=== PATIENT | female | born 2000 | race American Indian/Alaskan Native ===

== ENCOUNTER 2018-11-02 06:07 | Inpatient (IN) | payer MEDICAID ==
--- NOTE | 2018-11-02 08:15 | History and Physical Report ---
History of Present Illness Date of examination: 11/02/18 Chief complaint: SROM @ 0515 this morning History of present illness: EDC Confirmation: 11/09/2018 Past History : 1 Term Births: 0 Premature Births: 0 Living Children: 0 Para: 0 Mult. Births: 0 Prev : 0 Aborta: 0 Elect. Ab: 0 Spont. 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 of genital herpes: no Genetic History Congenital Heart Defect: Mom: no Dad: no Natasha Disease: Mom: no Dad: no Thalassemia Mom: no Dad: no Neural Tube Defect Mom: no Dad: no Down's Syndrome Mom: no Dad: no Carlos-Sachs Mom: no Dad: no Sickle Cell Disease/Trait Mom: no Dad: no Hemophilia Mom: no Dad: no Muscular Dystrophy Mom: no Dad: no Cystic Fibrosis Mom: no Dad: no Rapides Chorea Mom: no Dad: no Mental Retardation Mom: no Dad: no Fragile X Mom: no Dad: no Other Genetic/Chromosomal Disorder Mom: no Dad: no Child w/other defect Mom: no Dad: no Enviromental Exposures Xray Exposure: no Medication, drug, or alcohol use since LMP: yes Exposure to Cat Liter: no Hx of Parvovirus (Fifth Disease): no Active Medications (reviewed today): VITAMIN PLUS LOW IRON 27-1 MG ORAL TABLET ( VIT-FE FUMARATE-FA) 1 po q day as directed Current Allergies (reviewed today): No known allergies Past History Past Medical History: no pertinent history Past Surgical History: no surgical history Family/Genetic History: other Social history: single, lives with family. denies: smoking, alcohol abuse, prescription drug abuse, IV drug use - Obstetrical History Expected Date of Delivery: 11/09/18 Actual Gestation: 39 Week(s) 0 Day(s) : 1 Para: 0 Hx # Term Pregnancies: 0 Number of Pregnancies: 0 Spontaneous Abortions: 0 Induced : 0 Number of Living Children: 0 Medications and Allergies Allergies Allergy/AdvReac Type Severity Reaction Status Date / Time No Known Allergies Allergy Verified 11/02/18 08:06 Home Medications Medication Instructions Recorded Confirmed Last Taken Type Plus Iron Tablet 1 tab PO DAILY 11/02/18 11/02/18 1 Day Ago History ~11/01/18 Active Meds: Active Medications Ephedrine Sulfate (Ephedrine Sulfate) 10 mg IV Q2M PRN PRN Reason: Hypotension Fentanyl (Sublimaze) 100 mcg IV Q2H PRN PRN Reason: Labor Pain Oxytocin/Sodium Chloride (Pitocin/Ns 20 Unit/1000ml Drip) 20 units in 1,000 mls @ 125 mls/hr IV DIRECT HOLLY Oxytocin/Sodium Chloride (Pitocin/Ns 30 Unit/500ml) 30 units in 500 mls @ 4 mls/hr IV TITR HOLLY; Protocol Lactated Ringer's (Lactated Ringers) 1,000 mls @ 125 mls/hr IV DIRECT HOLLY Lidocaine (Xylocaine 2%) 20 ml INFILTRATI ONCE ONE Stop: 11/02/18 07:34 Mineral Oil (Mineral Oil) 30 ml PO QHS PRN PRN Reason: Constipation Terbutaline Sulfate (Brethine) 0.25 mg SUB-Q ONCE PRN PRN Reason: Hyperstimulation/Hypertonicity Review of Systems All systems: negative - Vital Signs Vital signs: Vital Signs Pulse BP 86 123/86 11/02/18 06:55 11/02/18 06:55 Temp Pulse Resp BP Pulse Ox 98.3 F 89 16 120/82 11/02/18 08:03 11/02/18 08:03 11/02/18 08:03 11/02/18 08:03 - Physical Exam Breasts: Positive: normal Cardiovascular: Regular rate Lungs: Positive: Clear to auscultation, Normal air movement Abdomen: Positive: normal appearance, soft Genitourinary (Female): Positive: normal external genitalia, normal perenium Vulva: both: normal Vagina: Positive: normal moisture (clear fluid) Uterus: Positive: normal size, normal contour Anus/Rectum: Positive: normal perianal skin Extremities: Positive: normal Deep Tendon Reflex Grade: Normal +2 - Obstetrical FHR: category 1 Uterine Contraction Monitor Mode: External Cervical Dilatation: 2 (posterior) Cervical Effacement Percentage: 70 station: -2 Uterine Contraction Frequency (min): 2-3 Uterine Contraction Duration: 60 Uterine Contraction Pattern: Regular Uterine Tone Measurement Phase: Contraction Uterine Contraction Intensity: Mild Results Result Diagrams: 11/02/18 08:00 All other labs normal. Assessment and Plan 17y/o @ 39 weeks admitted in early labor with SROM clear fluids. GBS negative. GC/CT results pending, will fax to hospital once received. complicated by late PNC @ 34 weeks. Pelvis feels adequate. Admission orders in EMR. Anticipate . - Patient Problems (1) 39 weeks gestation of Current Visit: Yes Status: Acute (2) SROM (spontaneous rupture of membranes) Current Visit: Yes Status: Acute Plan to address problem: limit SVE pitocin augmentation
[2018-11-02 08:19] LABS: Hematocrit 37.4 % (30.3-42.9); Hemoglobin 12.6 gm/dl (10.1-14.3); Mean Corpuscular HGB Conc 34 % (30-34); Mean Corpuscular Volume 86 fl (79-97); Platelet Count 265 K/mm3 (140-440); Red Blood Count 4.37 M/mm3 (3.65-5.03); Red Cell Distribution Width 13.5 % (13.2-15.2)
[2018-11-02] MEDS: LACTATED RINGERS 1,000 ML IV SCH ×2 (08:39→13:08)
[2018-11-02] MEDS ORDERED: BRETHINE SUB-Q PRN (09:00)
[2018-11-02] MEDS ORDERED: MINERAL OIL PO PRN (09:00)
[2018-11-02] MEDS ORDERED: XYLOCAINE 2% INFILTRATI NR (09:00)
[2018-11-02] MEDS ORDERED: PITOCin/NS 30 UNIT/500ML 30 UNITS/500 ML BAG IV SCH (09:00)
[2018-11-02] MEDS ORDERED: PITOCin/NS 20 UNIT/1000ML DRIP 20 UNITS/1,000 ML BAG IV SCH ×2 (09:00→16:30)
[2018-11-02] MEDS: SUBLIMAZE IV PRN ×2 (10:16→13:36)
--- NOTE | 2018-11-02 14:01 | Procedure Note ---
OB Delivery Note - Delivery Date of Delivery: 11/02/18 ( female) [employer] Machine Operator: CHRISTOPHER KO Estimated blood loss: 300cc - Vaginal Delivery presentation: vertex Delivery position: OA Intrapartum events: none Delivery induction: none Delivery augmentation: pitocin Delivery monitor: external FHT, internal uterine Route of delivery: Delivery placenta: spontaneous Delivery cord: 3 umbilical vessels Episiotomy: none Delivery laceration: 2nd degree Delivery repair: vicryl Anesthesia: local Delivery comments: female del over intact perineum, placed skin to skin on mother's abdomen. 3 vessel cord clamped and cut, cord blood collected. placenta del intact and complete. 2nd degree laceration repaired in the usual fashion under local. EBL 300, apgars 9/9, wt 7#6oz. baby and pt stable. - A at 1 minute: 9 at 5 minutes: 9 Gender: Female (7#6)
[2018-11-02] MEDS ORDERED: LANSINOH TP PRN (16:30)
[2018-11-02] MEDS ORDERED: PHENERGAN PO PRN (16:30)
[2018-11-02] MEDS ORDERED: ZOFRAN IV PRN (16:30)
[2018-11-02] MEDS ORDERED: TUCKS PAD TP PRN (16:30)
[2018-11-02] MEDS ORDERED: SODIUM CHLORIDE FLUSH SYRINGE 10 ML IV NR (16:30)
[2018-11-02] MEDS ORDERED: MILK OF MAGNESIA PO PRN (16:30)
[2018-11-02] MEDS ORDERED: BENADRYL PO PRN (17:00)
[2018-11-02] MEDS ORDERED: DERMOPLAST TP PRN (17:00)
[2018-11-02] MEDS ORDERED: TYLENOL PO PRN (17:00)
[2018-11-02] MEDS: IBUPROFEN PO SCH ×2 (17:30→23:52)
[2018-11-02 20:09] LABS: Amphetamine Screen,Urine PRESUMPTIVE NEGATIVE; Benzodiazepines Screen,Urine PRESUMPTIVE NEGATIVE; Cannabinoid Screen,Urine PRESUMPTIVE NEGATIVE; Cocaine Screen,Urine PRESUMPTIVE NEGATIVE; Methadone Screen,Urine PRESUMPTIVE NEGATIVE; Opiate Screen,Urine PRESUMPTIVE NEGATIVE
[2018-11-02] MEDS ORDERED: DULCOLAX PR PRN (22:00)
[2018-11-03 02:09] LABS: Hematocrit 31.6 % (30.3-42.9); Hemoglobin 10.4 gm/dl (10.1-14.3)
[2018-11-03] MEDS: IBUPROFEN PO SCH (05:48)
[2018-11-03] MEDS ORDERED: BOOSTRIX IM ONE ×2 (06:00→13:49)
--- NOTE | 2018-11-03 08:43 | Discharge Summary ---
Providers - Providers Date of Admission: 11/02/18 08:56 Date of discharge: 11/03/18 (pt desires d/c) Attending physician: KENTON MENJIVAR 11/02/18 18:18 Consult to Case Management [CONS] Routine Services Needed at Discharge: Chain Offbearer Notified:: [phone] Phone number called:: [phone] Additional Physician Instructions: thc use, during Primary care physician: KENTON MENJIVAR Hospitalization Reason for admission: active labor, IUP at term Delivery: Episiotomy: none Laceration: none Incision: normal Other procedures: none complications: none Discharge diagnosis: IUP at term delivered baby: female Hospital course: uncomplicated vaginal delivery Pt awake No c/o voiced VSS FF below umb Lochia small perineum intact H&H 01/10 stable Doing well s/p vag delivery P: d/c today with instructions RTO 4 weeks PP care DEPO @ d/c Condition at discharge: Good Disposition: DC-01 TO HOME OR SELFCARE - Discharge Diagnoses (1) (normal spontaneous vaginal delivery) Status: Acute Comment: RTO 4 weeks PP care Plan - Provider Discharge Summary Activity: routine, no sex for 6 weeks, no heavy lifting 4 weeks, no strenuous exercise Diet: routine Instructions: routine Additional instructions: [] Smoking cessation referral if applicable(refer to patient education folder for contact #) [] Refer to [facility] Booklet Call your doctor immediately for: * Fever > 100.5 * Heavy vaginal bleeding ( >1 pad per hour) * Severe persistent headache * Shortness of breath * Reddened, hot, painful area to leg or breast * Drainage or odor from incision. * Keep incision clean and dry at all times and follow doctor's instructions regarding bathing/showering - Follow up plan Follow up: KENTON MENJIVAR MD [Primary Care Provider] - 12/03/18 (Congratulations! Please call [phone] to schedule your appointment in 4 weeks. Call with any headache, blurred vision, chest pain. Take motrin/ibuprofen for cramping/pain. Call with any concerns.)
[2018-11-03] MEDS ORDERED: DEPO-PROVERA (CONTRACEPTION) IM ONE (09:00)
[2018-11-03 09:10] VITALS: BP 116/78
[2018-11-03] MEDS ORDERED: PRENATAL VITAMIN PO SCH (10:00)
== END 2018-11-03 15:40 | disposition home or self-care (01) | DRG 775 ==
LOC: TRG 06:07 → LD 06:35 → TRG 08:55 → LD 08:56 → OB 16:19
PROVIDERS: ADMIT Obstetrics & Gynecology; ATTEND Obstetrics & Gynecology
PROC: 10E0XZZ Delivery of Products of Conception, External Approach (ICD-10-PCS; principal; 2018-11-02)
PROC: 0KQM0ZZ Repair Perineum Muscle, Open Approach (ICD-10-PCS; 2018-11-02)
PROC: 3E0234Z Introduction of Serum, Toxoid and Vaccine into Muscle, Percutaneous Approach (ICD-10-PCS; 2018-11-03)
DX: O70.1 Second degree perineal laceration during delivery (principal); Z37.0 Single live birth; Z3A.39 39 weeks gestation of pregnancy; Z79.899 Other long term (current) drug therapy; Z23 Encounter for immunization
CPT/HCPCS: 36415; 80307; 85014; 85018; 85027; 86592; 86850; 86870; 86900; 86901; 86922; 90471; 90715; G0378; J1050; J2590; J3010; J7120